=== PATIENT | female | born 1960 | race Caucasian/White ===

== ENCOUNTER 2018-07-18 18:52 | Inpatient (IN) | payer SELFPAY ==
[~2018-07-18] VITALS: Ht 165.1 cm; Wt 162.3 kg
[2018-07-18] MEDS ORDERED: OXYC10TA6 PO (20:41)
[2018-07-18] MEDS ORDERED: ZOLP10TA PO (20:41)
[2018-07-18] MEDS ORDERED: WARF-36 PO (20:41)
[2018-07-18] MEDS ORDERED: LEVO175T5 PO (20:41)
[2018-07-18] MEDS ORDERED: DILT60CA PO (20:41)
[2018-07-18] MEDS ORDERED: DULO60CA7 PO (20:41)
[2018-07-18] MEDS ORDERED: OXYcodone IR 5MG TABLET PO ONE (21:30)
[2018-07-18] MEDS ORDERED: OXYcodone IR 5MG TABLET ONE (21:35)
[2018-07-18 21:43] LABS: BASOPHILS # (AUTO) 0.05 x10^3/uL (0-0.1); BASOPHILS % (AUTO) 1 % (0-1); EOSINOPHILS # (AUTO) 0.05 x10^3/uL (0-0.4); EOSINOPHILS % (AUTO) 1 % (1-7); LYMPHOCYTES # (AUTO) 2.16 x10^3/uL (1-3.4); LYMPHOCYTES % (AUTO) 30 % (22-44); MD NO; MEAN CORPUSCULAR HEMOGLOBIN 30.4 pg (27.0-34.8); MEAN CORPUSCULAR HGB CONC 33.5 g/dL (32.4-35.8); MEAN CORPUSCULAR VOLUME 90.8 fL (80-100); MEAN PLATELET VOLUME 7.5 fL (7.4-10.4); MONOCYTES # (AUTO) 0.66 x10^3/uL (0.2-0.8); MONOCYTES % (AUTO) 9 % (2-9); NEUTROPHILS # (AUTO) 4.36 x10^3/uL (1.8-6.8); NEUTROPHILS % (AUTO) 60 % (42-75); PLATELET COUNT 321 x10^3/uL (130-400); RED BLOOD COUNT 4.25 x10^6/uL (3.82-5.3); RED CELL DISTRIBUTION WIDTH 13.1 % (9.6-15.2)
[2018-07-18] MEDS ORDERED: LORazepam 2 MG/ML, 1ML ONE (21:49)
[2018-07-18 21:53] LABS: ANION GAP 8 mmol/L (5-15); CALCIUM 9.4 mg/dL (8.5-10.1); CHLORIDE 106 mmol/L (98-107); CREATININE 0.77 mg/dL (0.55-1.02)
[2018-07-18] MEDS ORDERED: LORazepam 2 MG/ML, 1ML IVPush ONE (22:00)
[2018-07-18] MEDS ORDERED: GADOBUTROL 10 MMOL/10 ML PFS ONE (23:12)
[2018-07-19] MEDS ORDERED: MORPHINE SULFATE 4 MG/ML, 1ML ONE (00:35)
[2018-07-19] MEDS ORDERED: DEXAMETHASONE 4 MG/ML, 1ML ONE (00:46)
[2018-07-19] MEDS ORDERED: SODIUM CHLORIDE 0.9% 1,000 ML IV SCH (00:49)
[2018-07-19] MEDS ORDERED: PROMETHAZINE 25 MG/ML, 1ML IM PRN (01:00)
[2018-07-19] MEDS ORDERED: POLYETHYLENE GLYCOL 17 GM PACKET PO PRN (01:00)
[2018-07-19] MEDS ORDERED: DEXAMETHASONE 4 MG/ML, 1ML IVPush ONE (01:00)
[2018-07-19] MEDS ORDERED: BISACODYL 10 MG SUPP PR PRN (01:00)
[2018-07-19] MEDS ORDERED: LABETALOL 5MG/ML, 20ML IVPush PRN (01:00)
[2018-07-19] MEDS ORDERED: ONDANSETRON 2MG/ML, 2ML IVPush PRN (01:00)
[2018-07-19] MEDS ORDERED: ACETAMINOPHEN 325 MG TABLET PO PRN (01:00)
[2018-07-19] MEDS ORDERED: hydrALAzine 20 MG/ML, 1ML IVPush PRN (01:00)
[2018-07-19] MEDS ORDERED: MORPHINE SULFATE 4 MG/ML, 1ML IVPush PRN (01:00)
[2018-07-19] MEDS ORDERED: [UNRECOGNIZED DRUG - REMARK] MC SCH (01:30)
[2018-07-19 01:32] LABS: FREE T4 (FREE THYROXINE) 0.82 ng/dL (0.76-1.46); THYROID STIMULATING HORMONE 2.98 mIU/L (0.358-3.740)
[2018-07-19] MEDS ORDERED: HEPARIN 5,000 UNITS/ML, 1ML IV ONE (02:00)
[2018-07-19 02:23] VITALS: BP 120/58
[2018-07-19] MEDS: ZOLPIDEM 10MG TABLET PO PRN ×2 (02:53→21:42)
[2018-07-19 03:08] LABS: HEMOGLOBIN A1C 5.9 % (4.2-6.3)
[2018-07-19] MEDS: DEXAMETHASONE 4 MG/ML, 1ML IVPush SCH ×4 (03:16→21:43)
[2018-07-19] MEDS ORDERED: DIAZEPAM 2 MG TABLET PO ONE (03:30)
[2018-07-19] MEDS: HEPARIN 25,000 UNITS/500ML PMX 500 ML IV PRN (05:03)
[2018-07-19] MEDS: ONDANSETRON ODT 4 MG PO PRN (05:09)
[2018-07-19] MEDS: OXYcodone IR 5MG TABLET PO SCH ×3 (05:10→17:27)
[2018-07-19] MEDS ORDERED: OXYcodone IR 5MG TABLET PO SCH (06:00)
[2018-07-19] MEDS ORDERED: MAGNESIUM SULFATE PMX 2GM/50ML 50 ML IV ONE (07:30)
[2018-07-19 07:57] VITALS: BP 103/64
[2018-07-19] MEDS: morphine SULFATE 10 MG/ML, 1ML IVPush PRN ×3 (08:24→18:27)
[2018-07-19] MEDS ORDERED: LORazepam 2 MG/ML, 1ML IVPush ONE (09:00)
[2018-07-19] MEDS ORDERED: LEVOTHYROXINE 75 MCG TABLET ONE (09:46)
[2018-07-19] MEDS ORDERED: LEVOTHYROXINE 100 MCG TABLET ONE (09:46)
[2018-07-19] MEDS: SENNA/DOCUSATE TABLET PO SCH (09:50)
[2018-07-19] MEDS: DILTIAZEM 60 MG CAP.ER.12H PO SCH ×2 (09:50→21:42)
[2018-07-19] MEDS: DULOXETINE 30 MG CAPSULE.DR PO SCH (09:50)
[2018-07-19] MEDS: LEVOTHYROXINE 175 MCG TABLET PO SCH (09:52)
[2018-07-19] MEDS ORDERED: GADOBUTROL 15 MMOL/15 ML VIAL ONE (11:16)
[2018-07-19 13:24] VITALS: BP 105/71
[2018-07-19 13:38] LABS: CULTURE INDICATED? YES; MICROSCOPIC INDICATED
[2018-07-19] MEDS: HEPARIN 5,000 UNITS/ML, 1ML IV PRN (18:20)
[2018-07-19 20:49] VITALS: BP 135/84
[2018-07-20] MEDS: OXYcodone IR 5MG TABLET PO SCH ×5 (00:20→23:54)
[2018-07-20] MEDS: morphine SULFATE 10 MG/ML, 1ML IVPush PRN ×5 (01:53→20:28)
[2018-07-20] MEDS: HEPARIN 5,000 UNITS/ML, 1ML IV PRN (02:04)
[2018-07-20 02:58] VITALS: BP 120/72
[2018-07-20] MEDS: DEXAMETHASONE 4 MG/ML, 1ML IVPush SCH (04:03)
[2018-07-20] MEDS: HEPARIN 25,000 UNITS/500ML PMX 500 ML IV PRN (05:06)
[2018-07-20 05:58] LABS: BASOPHILS # (AUTO) 0.01 x10^3/uL (0-0.1); BASOPHILS % (AUTO) 0 % (0-1); EOSINOPHILS % (AUTO) 1 % (1-7); LYMPHOCYTES # (AUTO) 1.36 x10^3/uL (1-3.4); LYMPHOCYTES % (AUTO) 11 % (22-44); MD NO; MEAN CORPUSCULAR HEMOGLOBIN 30.1 pg (27.0-34.8); MEAN CORPUSCULAR HGB CONC 32.8 g/dL (32.4-35.8); MEAN CORPUSCULAR VOLUME 91.8 fL (80-100); MEAN PLATELET VOLUME 8.1 fL (7.4-10.4); MONOCYTES # (AUTO) 0.76 x10^3/uL (0.2-0.8); MONOCYTES % (AUTO) 6 % (2-9); NEUTROPHILS # (AUTO) 10.58 x10^3/uL (1.8-6.8); NEUTROPHILS % (AUTO) 83 % (42-75); PLATELET COUNT 325 x10^3/uL (130-400); RED BLOOD COUNT 4.04 x10^6/uL (3.82-5.3); RED CELL DISTRIBUTION WIDTH 13.4 % (9.6-15.2)
[2018-07-20 06:07] LABS: ALANINE AMINOTRANSFERASE 26 U/L (12-78); ALBUMIN 3.4 g/dL (3.4-5.0); ANION GAP 7 mmol/L (5-15); CALCIUM 8.9 mg/dL (8.5-10.1); CHLORIDE 107 mmol/L (98-107)
[2018-07-20 06:09] LABS: ALKALINE PHOSPHATASE 99 U/L (45-117); BILIRUBIN,TOTAL 0.2 mg/dL (0.2-1.0); CHOL/HDL RATIO 2.7; CHOLESTEROL, TOTAL 202 mg/dL (140-239); CREATININE 0.95 mg/dL (0.55-1.02); HDL CHOL % 37 % (28-40); HDL CHOLESTEROL (DIRECT) 74 mg/dL (40-60); LDL CHOLESTEROL,CALCULATED 108 mg/dL (54-169); LDL/HDL RATIO 1.5 (0.5-3.0); TOTAL PROTEIN 7.1 g/dL (6.4-8.2); TRIGLYCERIDES 102 mg/dL (50-200); VLDL CHOLESTEROL 20 mg/dL (0-25)
[2018-07-20 07:20] VITALS: BP 130/75
[2018-07-20] MEDS ORDERED: LEVOTHYROXINE 75 MCG TABLET ONE (09:16)
[2018-07-20] MEDS ORDERED: LEVOTHYROXINE 100 MCG TABLET ONE (09:16)
[2018-07-20] MEDS: SENNA/DOCUSATE TABLET PO SCH (09:20)
[2018-07-20] MEDS: DULOXETINE 30 MG CAPSULE.DR PO SCH (09:20)
[2018-07-20] MEDS: DILTIAZEM 60 MG CAP.ER.12H PO SCH ×2 (09:21→20:28)
[2018-07-20] MEDS: LEVOTHYROXINE 175 MCG TABLET PO SCH (09:21)
[2018-07-20] MEDS ORDERED: LORazepam 2 MG/ML, 1ML IVPush ONE ×2 (10:00→15:00)
[2018-07-20 13:12] VITALS: BP 116/70
[2018-07-20 19:39] VITALS: BP 126/83
[2018-07-20] MEDS: ZOLPIDEM 10MG TABLET PO PRN (22:16)
[2018-07-21] MEDS: HEPARIN 25,000 UNITS/500ML PMX 500 ML IV PRN ×2 (01:49→15:41)
[2018-07-21 02:13] VITALS: BP 125/81
[2018-07-21] MEDS: morphine SULFATE 10 MG/ML, 1ML IVPush PRN ×5 (04:30→20:25)
[2018-07-21] MEDS: HEPARIN 5,000 UNITS/ML, 1ML IV PRN ×2 (05:08→18:30)
[2018-07-21] MEDS: OXYcodone IR 5MG TABLET PO SCH ×4 (05:22→23:31)
[2018-07-21 07:41] VITALS: BP 132/79
[2018-07-21] MEDS ORDERED: LEVOTHYROXINE 100 MCG TABLET ONE (08:58)
[2018-07-21] MEDS ORDERED: LEVOTHYROXINE 75 MCG TABLET ONE (08:58)
[2018-07-21] MEDS: DULOXETINE 30 MG CAPSULE.DR PO SCH (09:01)
[2018-07-21] MEDS: SENNA/DOCUSATE TABLET PO SCH (09:01)
[2018-07-21] MEDS: DILTIAZEM 60 MG CAP.ER.12H PO SCH ×2 (09:01→20:25)
[2018-07-21] MEDS: LEVOTHYROXINE 175 MCG TABLET PO SCH (09:06)
[2018-07-21 13:45] VITALS: BP 133/82
[2018-07-21 20:20] VITALS: BP 121/75
[2018-07-21] MEDS: ZOLPIDEM 10MG TABLET PO PRN (22:18)
[2018-07-22 00:56] VITALS: BP 133/82
[2018-07-22] MEDS: morphine SULFATE 10 MG/ML, 1ML IVPush PRN ×6 (01:47→22:12)
[2018-07-22] MEDS: HEPARIN 25,000 UNITS/500ML PMX 500 ML IV PRN ×2 (03:49→04:04)
[2018-07-22] MEDS: METHOCARBAMOL 500 MG TABLET PO PRN (04:23)
[2018-07-22] MEDS: OXYcodone IR 5MG TABLET PO SCH ×4 (05:42→23:27)
[2018-07-22 07:09] VITALS: BP 112/75
[2018-07-22] MEDS: HEPARIN 5,000 UNITS/ML, 1ML IV PRN (08:12)
[2018-07-22] MEDS: DILTIAZEM 60 MG CAP.ER.12H PO SCH ×2 (09:26→20:41)
[2018-07-22] MEDS: DULOXETINE 30 MG CAPSULE.DR PO SCH (09:27)
[2018-07-22] MEDS: SENNA/DOCUSATE TABLET PO SCH (09:27)
[2018-07-22] MEDS: LEVOTHYROXINE 175 MCG TABLET PO SCH (09:32)
[2018-07-22 11:32] LABS: MICROSCOPIC NOT IND
[2018-07-22 11:46] LABS: CULTURE INDICATED? NO
[2018-07-22 12:26] VITALS: BP 115/72
[2018-07-22 18:36] VITALS: BP 112/77
[2018-07-22] MEDS: ZOLPIDEM 10MG TABLET PO PRN (20:41)
[2018-07-23 00:35] VITALS: BP 116/73
[2018-07-23] MEDS: morphine SULFATE 10 MG/ML, 1ML IVPush PRN ×7 (01:35→22:37)
[2018-07-23] MEDS: HEPARIN 25,000 UNITS/500ML PMX 500 ML IV PRN ×2 (04:11→16:11)
[2018-07-23] MEDS: OXYcodone IR 5MG TABLET PO SCH ×4 (05:31→23:40)
[2018-07-23] MEDS: HEPARIN 5,000 UNITS/ML, 1ML IV PRN (05:32)
[2018-07-23 07:11] VITALS: BP 105/71
[2018-07-23] MEDS: SENNA/DOCUSATE TABLET PO SCH (08:25)
[2018-07-23] MEDS: DULOXETINE 30 MG CAPSULE.DR PO SCH (08:26)
[2018-07-23] MEDS: DILTIAZEM 60 MG CAP.ER.12H PO SCH ×2 (08:26→20:51)
[2018-07-23] MEDS: LEVOTHYROXINE 175 MCG TABLET PO SCH (08:26)
[2018-07-23 12:43] VITALS: BP 110/76
[2018-07-23 14:15] LABS: INTERNATIONAL NORMALIZED RATIO 0.99 (0.93-1.1); PROTHROMBIN TIME 10.3 Seconds (9.6-11.5)
[2018-07-23] MEDS ORDERED: WARFARIN 7.5 MG TABLET PO-COUM ONE (18:00)
[2018-07-23 18:29] VITALS: BP 115/82
[2018-07-23] MEDS: ZOLPIDEM 10MG TABLET PO PRN (20:51)
[2018-07-24 00:43] VITALS: BP 116/66
[2018-07-24] MEDS: morphine SULFATE 10 MG/ML, 1ML IVPush PRN (02:26)
[2018-07-24] MEDS: HEPARIN 25,000 UNITS/500ML PMX 500 ML IV PRN ×2 (02:41→13:39)
[2018-07-24] MEDS: OXYcodone IR 5MG TABLET PO SCH (05:31)
[2018-07-24] MEDS: METHOCARBAMOL 500 MG TABLET PO PRN ×2 (05:32→17:52)
[2018-07-24 05:43] LABS: INTERNATIONAL NORMALIZED RATIO 1.01 (0.93-1.1); PROTHROMBIN TIME 10.5 Seconds (9.6-11.5)
[2018-07-24 05:47] LABS: BASOPHILS # (AUTO) 0.04 x10^3/uL (0-0.1); BASOPHILS % (AUTO) 0 % (0-1); EOSINOPHILS # (AUTO) 0.28 x10^3/uL (0-0.4); EOSINOPHILS % (AUTO) 3 % (1-7); LYMPHOCYTES # (AUTO) 2.83 x10^3/uL (1-3.4); LYMPHOCYTES % (AUTO) 31 % (22-44); MD NO; MEAN CORPUSCULAR HEMOGLOBIN 30.2 pg (27.0-34.8); MEAN CORPUSCULAR HGB CONC 33.1 g/dL (32.4-35.8); MEAN CORPUSCULAR VOLUME 91.1 fL (80-100); MEAN PLATELET VOLUME 7.8 fL (7.4-10.4); MONOCYTES # (AUTO) 0.58 x10^3/uL (0.2-0.8); MONOCYTES % (AUTO) 6 % (2-9); NEUTROPHILS # (AUTO) 5.36 x10^3/uL (1.8-6.8); NEUTROPHILS % (AUTO) 59 % (42-75); PLATELET COUNT 269 x10^3/uL (130-400); RED BLOOD COUNT 4.43 x10^6/uL (3.82-5.3); RED CELL DISTRIBUTION WIDTH 13.7 % (9.6-15.2)
[2018-07-24 05:49] LABS: ALBUMIN 3.2 g/dL (3.4-5.0); ANION GAP 10 mmol/L (5-15); CALCIUM 8.9 mg/dL (8.5-10.1); CHLORIDE 97 mmol/L (98-107)
[2018-07-24 05:53] LABS: ALANINE AMINOTRANSFERASE 25 U/L (12-78); ALKALINE PHOSPHATASE 95 U/L (45-117); BILIRUBIN,TOTAL 0.3 mg/dL (0.2-1.0); CREATININE 0.85 mg/dL (0.55-1.02)
[2018-07-24 07:30] VITALS: BP 103/69
[2018-07-24] MEDS ORDERED: LEVOTHYROXINE 100 MCG TABLET ONE (10:09)
[2018-07-24] MEDS ORDERED: LEVOTHYROXINE 75 MCG TABLET ONE (10:09)
[2018-07-24] MEDS: SENNA/DOCUSATE TABLET PO SCH (10:43)
[2018-07-24] MEDS: LEVOTHYROXINE 175 MCG TABLET PO SCH (10:43)
[2018-07-24] MEDS: DULOXETINE 30 MG CAPSULE.DR PO SCH (10:43)
[2018-07-24] MEDS: DILTIAZEM 60 MG CAP.ER.12H PO SCH (10:44)
[2018-07-24 11:05] VITALS: BP 161/85
[2018-07-24] MEDS: OXYcodone IR 5MG TABLET PO PRN ×3 (11:07→22:30)
[2018-07-24 12:25] VITALS: BP 139/94
[2018-07-24] MEDS ORDERED: MAGNESIUM HYDROXIDE 8%, 30ML UDC ONE (13:44)
[2018-07-24] MEDS: MAGNESIUM HYDROXIDE 8%, 30ML UDC PO PRN (13:46)
[2018-07-24] MEDS ORDERED: WARFARIN 7.5 MG TABLET PO-COUM ONE (18:00)
[2018-07-24] MEDS: ZOLPIDEM 10MG TABLET PO PRN (20:19)
[2018-07-24 20:20] VITALS: BP 117/77
[2018-07-25 01:14] VITALS: BP 129/72
[2018-07-25] MEDS: METHOCARBAMOL 500 MG TABLET PO PRN ×3 (01:46→18:17)
[2018-07-25] MEDS: OXYcodone IR 5MG TABLET PO PRN ×4 (05:06→22:16)
[2018-07-25 05:25] LABS: INTERNATIONAL NORMALIZED RATIO 1.08 (0.93-1.1); PROTHROMBIN TIME 11.1 Seconds (9.6-11.5)
[2018-07-25 08:05] VITALS: BP 113/81
[2018-07-25] MEDS: LEVOTHYROXINE 175 MCG TABLET PO SCH (09:00)
[2018-07-25] MEDS ORDERED: LEVOTHYROXINE 125 MCG TABLET ONE (09:25)
[2018-07-25] MEDS ORDERED: LEVOTHYROXINE 25 MCG TABLET ONE (09:26)
[2018-07-25] MEDS: DULOXETINE 30 MG CAPSULE.DR PO SCH (09:35)
[2018-07-25] MEDS: SENNA/DOCUSATE TABLET PO SCH (09:36)
[2018-07-25] MEDS: DILTIAZEM 120 MG CAP.ER.12H PO SCH (09:36)
[2018-07-25 13:34] VITALS: BP 111/74
[2018-07-25] MEDS: MAGNESIUM HYDROXIDE 8%, 30ML UDC PO PRN (16:09)
[2018-07-25] MEDS ORDERED: WARFARIN 3 MG TABLET PO-COUM SCH (18:00)
[2018-07-25 19:32] VITALS: BP 148/65
[2018-07-25] MEDS: ZOLPIDEM 10MG TABLET PO PRN (20:26)
[2018-07-25] MEDS: ONDANSETRON ODT 4 MG PO PRN (23:19)
[2018-07-26 02:02] VITALS: BP 104/70
[2018-07-26] MEDS: OXYcodone IR 5MG TABLET PO PRN ×4 (04:31→23:26)
[2018-07-26 05:43] LABS: INTERNATIONAL NORMALIZED RATIO 1.3 (0.93-1.1); PROTHROMBIN TIME 13.3 Seconds (9.6-11.5)
[2018-07-26 07:40] VITALS: BP 105/72
[2018-07-26] MEDS ORDERED: LEVOTHYROXINE 75 MCG TABLET ONE (08:14)
[2018-07-26] MEDS ORDERED: LEVOTHYROXINE 100 MCG TABLET ONE (08:14)
[2018-07-26] MEDS: LEVOTHYROXINE 175 MCG TABLET PO SCH (08:33)
[2018-07-26] MEDS: SENNA/DOCUSATE TABLET PO SCH (08:34)
[2018-07-26] MEDS: DULOXETINE 30 MG CAPSULE.DR PO SCH (08:35)
[2018-07-26] MEDS: DILTIAZEM 120 MG CAP.ER.12H PO SCH (08:35)
[2018-07-26] MEDS ORDERED: WARF7.5T PO-COUM (12:19)
[2018-07-26 12:50] VITALS: BP 106/73
[2018-07-26] MEDS ORDERED: WARFARIN 7.5 MG TABLET PO-COUM SCH (18:00)
[2018-07-26 18:58] VITALS: BP 102/69
[2018-07-26] MEDS: ZOLPIDEM 10MG TABLET PO PRN (21:11)
[2018-07-27] MEDS: METHOCARBAMOL 500 MG TABLET PO PRN (01:05)
[2018-07-27 01:59] VITALS: BP 104/67
[2018-07-27 05:32] LABS: INTERNATIONAL NORMALIZED RATIO 1.52 (0.93-1.1); PROTHROMBIN TIME 15.5 Seconds (9.6-11.5)
[2018-07-27] MEDS: OXYcodone IR 5MG TABLET PO PRN ×2 (05:34→11:43)
[2018-07-27 06:45] VITALS: BP 103/69
[2018-07-27] MEDS: SENNA/DOCUSATE TABLET PO SCH (09:00)
[2018-07-27] MEDS: DILTIAZEM 120 MG CAP.ER.12H PO SCH (09:00)
[2018-07-27] MEDS: LEVOTHYROXINE 175 MCG TABLET PO SCH (09:00)
[2018-07-27] MEDS: DULOXETINE 30 MG CAPSULE.DR PO SCH (09:01)
[2018-07-27 12:39] VITALS: BP 114/86
[2018-07-27] MEDS ORDERED: WARFARIN 7.5 MG TABLET PO-COUM ONE (18:00)
== END 2018-07-27 13:30 | disposition home or self-care (01) | DRG 552 ==
LOC: ED 21:31 → 4NOR 07-19 00:49 → DCLOUNGE 07-27 13:15
PROVIDERS: ADMIT Internal Medicine; ATTEND Internal Medicine
DX: M48.061 Spinal stenosis, lumbar region without neurogenic claudication (principal); D68.69 Other thrombophilia; G82.20 Paraplegia, unspecified; L03.90 Cellulitis, unspecified; I69.354 Hemiplegia and hemiparesis following cerebral infarction affecting left non-dominant side; Z68.43 Body mass index [BMI] 50.0-59.9, adult; E66.01 Morbid (severe) obesity due to excess calories; I48.2 Chronic atrial fibrillation; F41.9 Anxiety disorder, unspecified; F32.9 Major depressive disorder, single episode, unspecified; E03.9 Hypothyroidism, unspecified; W01.0XXA Fall on same level from slipping, tripping and stumbling without subsequent striking against object, initial encounter; M43.16 Spondylolisthesis, lumbar region; M51.16 Intervertebral disc disorders with radiculopathy, lumbar region; Z79.01 Long term (current) use of anticoagulants; Z88.6 Allergy status to analgesic agent; Z88.1 Allergy status to other antibiotic agents; Z88.8 Allergy status to other drugs, medicaments and biological substances; Z90.49 Acquired absence of other specified parts of digestive tract; Z98.891 History of uterine scar from previous surgery
CPT/HCPCS: 36415; 70551; 72110; 72131; 72156; 72157; 72158; 80048; 80053; 80061; 81001; 81003; 83036; 83735; 84439; 84443; 85025; 85520; 85610; 87086; 96374; A9585; G0378; J1100; J1644; J2405; Q0162; J2060; J2270; J3475; J7030

== ENCOUNTER 2018-08-10 14:11 | Inpatient (IN) | payer OTHER ==
[~2018-08-10] VITALS: Ht 160 cm; Wt 174.1 kg
[~2018-08-10 14:11] MED LIST: DILT60CA PO; DULO60CA7 PO; LEVO175T5 PO; OXYC10TA6 PO; WARF-36 PO; WARF7.5T PO-COUM; ZOLP10TA PO
[2018-08-10] MEDS ORDERED: MORPHINE SULFATE 4 MG/ML, 1ML IVPush PRN (14:30)
[2018-08-10] MEDS ORDERED: ASPIRIN 81 MG TABLET CHEW PO ONE (14:30)
[2018-08-10] MEDS ORDERED: ASPIRIN 81 MG TABLET CHEW ONE (14:33)
[2018-08-10 14:52] LABS: BASOPHILS # (AUTO) 0.03 x10^3/uL (0-0.1); BASOPHILS % (AUTO) 0 % (0-1); EOSINOPHILS # (AUTO) 0.07 x10^3/uL (0-0.4); EOSINOPHILS % (AUTO) 1 % (1-7); LYMPHOCYTES # (AUTO) 1.35 x10^3/uL (1-3.4); LYMPHOCYTES % (AUTO) 17 % (22-44); MD NO; MEAN CORPUSCULAR HEMOGLOBIN 30.6 pg (27.0-34.8); MEAN CORPUSCULAR HGB CONC 33.6 g/dL (32.4-35.8); MEAN CORPUSCULAR VOLUME 90.9 fL (80-100); MEAN PLATELET VOLUME 7.9 fL (7.4-10.4); MONOCYTES # (AUTO) 0.47 x10^3/uL (0.2-0.8); MONOCYTES % (AUTO) 6 % (2-9); NEUTROPHILS # (AUTO) 5.92 x10^3/uL (1.8-6.8); NEUTROPHILS % (AUTO) 76 % (42-75); PLATELET COUNT 270 x10^3/uL (130-400); RED BLOOD COUNT 4.47 x10^6/uL (3.82-5.3); RED CELL DISTRIBUTION WIDTH 13.4 % (9.6-15.2)
[2018-08-10 15:00] LABS: INTERNATIONAL NORMALIZED RATIO 1.16 (0.93-1.1); PROTHROMBIN TIME 11.9 Seconds (9.6-11.5)
[2018-08-10 15:02] LABS: ALANINE AMINOTRANSFERASE 37 U/L (12-78); ALBUMIN 3.2 g/dL (3.4-5.0); ANION GAP 5 mmol/L (5-15); CALCIUM 8.4 mg/dL (8.5-10.1); CHLORIDE 107 mmol/L (98-107); CREATININE 0.84 mg/dL (0.55-1.02)
[2018-08-10] MEDS ORDERED: MORPHINE SULFATE 4 MG/ML, 1ML ONE (15:02)
[2018-08-10 15:07] LABS: ALKALINE PHOSPHATASE 101 U/L (45-117); BILIRUBIN,TOTAL 0.5 mg/dL (0.2-1.0); TOTAL PROTEIN 6.9 g/dL (6.4-8.2); TROPONIN I 0.056 ng/mL (0.000-0.045)
[2018-08-10] MEDS ORDERED: OMNIPAQUE 350 MG/ML, 100ML BOTTLE ONE (17:11)
[2018-08-10] MEDS ORDERED: HYDR25TA11 PO (17:40)
[2018-08-10] MEDS ORDERED: CLON0.1T PO (17:40)
[2018-08-10 18:21] VITALS: BP 132/88
[2018-08-10] MEDS ORDERED: WARFARIN SODIUM 7.5 MG PO-COUM SCH (18:30)
[2018-08-10] MEDS ORDERED: ENALAPRILAT 1.25 MG/ML, 2ML IV PRN (18:30)
[2018-08-10] MEDS ORDERED: LIDODERM 5% PATCH TD PRN (18:30)
[2018-08-10 19:30] VITALS: BP 131/75
[2018-08-10] MEDS ORDERED: WARFARIN 7.5 MG TABLET PO-COUM ONE (19:30)
[2018-08-10 20:00] VITALS: BP 136/85
[2018-08-10] MEDS: DILTIAZEM 60 MG CAP.ER.12H PO SCH (20:40)
[2018-08-10 21:12] LABS: TROPONIN I 0.051 ng/mL (0.000-0.045)
[2018-08-10 22:00] VITALS: BP 122/76
[2018-08-10] MEDS: ONDANSETRON 4 MG TABLET PO PRN (22:07)
[2018-08-10] MEDS: SODIUM CHLORIDE 0.9% 1,000 ML IV SCH (22:34)
[2018-08-11] VITALS (8 sets, daily range): BP systolic 108–134; BP diastolic 69–76
[2018-08-11] MEDS ORDERED: OXYcodone IR 5MG TABLET PO SCH
[2018-08-11] MEDS: OXYcodone IR 5MG TABLET PO SCH ×5 (00:14→23:19)
[2018-08-11] MEDS: ONDANSETRON 4 MG TABLET PO PRN ×3 (02:50→15:40)
[2018-08-11 03:00] LABS: INTERNATIONAL NORMALIZED RATIO 1.15 (0.93-1.1); PROTHROMBIN TIME 11.8 Seconds (9.6-11.5)
[2018-08-11 03:06] LABS: CHOL/HDL RATIO 3.6; LDL/HDL RATIO 1.6 (0.5-3.0); TROPONIN I 0.048 ng/mL (0.000-0.045)
[2018-08-11] MEDS: DILTIAZEM 60 MG CAP.ER.12H PO SCH ×2 (09:02→21:00)
[2018-08-11] MEDS: DULOXETINE 30 MG CAPSULE.DR PO SCH (09:02)
[2018-08-11] MEDS: ASPIRIN 81 MG TABLET CHEW PO SCH (09:02)
[2018-08-11] MEDS: LEVOTHYROXINE 175 MCG TABLET PO SCH (09:02)
[2018-08-11 16:16] LABS: RAPID INFLUENZA A Negative (Negative); RAPID INFLUENZA B Negative (Negative)
[2018-08-11] MEDS ORDERED: WARFARIN 7.5 MG TABLET PO-COUM SCH (18:00)
[2018-08-11] MEDS: ZOLPIDEM 10MG TABLET PO PRN (20:41)
[2018-08-11] MEDS: SODIUM CHLORIDE 0.9% 1,000 ML IV SCH (23:20)
[2018-08-12 00:55] VITALS: BP 106/67
[2018-08-12 04:52] LABS: INTERNATIONAL NORMALIZED RATIO 1.46 (0.93-1.1); PROTHROMBIN TIME 14.9 Seconds (9.6-11.5)
[2018-08-12] MEDS: OXYcodone IR 5MG TABLET PO SCH ×4 (05:11→22:12)
[2018-08-12 08:30] VITALS: BP 141/65
[2018-08-12] MEDS: LEVOTHYROXINE 175 MCG TABLET PO SCH (08:48)
[2018-08-12] MEDS: DULOXETINE 30 MG CAPSULE.DR PO SCH (08:49)
[2018-08-12] MEDS: ASPIRIN 81 MG TABLET CHEW PO SCH (08:49)
[2018-08-12] MEDS: DILTIAZEM 60 MG CAP.ER.12H PO SCH ×2 (08:49→19:51)
[2018-08-12] MEDS: ONDANSETRON 4 MG TABLET PO PRN ×2 (08:50→17:32)
[2018-08-12] MEDS: SODIUM CHLORIDE 0.9% 1,000 ML IV SCH ×2 (08:58→22:12)
[2018-08-12] MEDS ORDERED: NITROGLYCERIN 0.4 MG BOTTLE (25 TABS) SL PRN (09:00)
[2018-08-12] MEDS ORDERED: NITROGLYCERIN 0.4 MG/SPRAY SL PRN (09:00)
[2018-08-12] MEDS ORDERED: IBUPROFEN 200 MG TABLET PO PRN (10:00)
[2018-08-12 11:07] LABS: CALCIUM 9.1 mg/dL (8.5-10.1); CHLORIDE 106 mmol/L (98-107)
[2018-08-12 11:13] LABS: ALANINE AMINOTRANSFERASE 30 U/L (12-78); ALBUMIN 3.2 g/dL (3.4-5.0); ALKALINE PHOSPHATASE 108 U/L (45-117); ANION GAP 6 mmol/L (5-15); BASOPHILS # (AUTO) 0.03 x10^3/uL (0-0.1); BASOPHILS % (AUTO) 1 % (0-1); BILIRUBIN,TOTAL 0.4 mg/dL (0.2-1.0); CREATININE 0.84 mg/dL (0.55-1.02); EOSINOPHILS # (AUTO) 0.24 x10^3/uL (0-0.4); EOSINOPHILS % (AUTO) 4 % (1-7); LYMPHOCYTES # (AUTO) 1.52 x10^3/uL (1-3.4); LYMPHOCYTES % (AUTO) 25 % (22-44); MD NO; MEAN CORPUSCULAR HEMOGLOBIN 29.9 pg (27.0-34.8); MEAN CORPUSCULAR HGB CONC 32.8 g/dL (32.4-35.8); MEAN CORPUSCULAR VOLUME 91.3 fL (80-100); MEAN PLATELET VOLUME 7.8 fL (7.4-10.4); MONOCYTES # (AUTO) 0.48 x10^3/uL (0.2-0.8); MONOCYTES % (AUTO) 8 % (2-9); NEUTROPHILS # (AUTO) 3.73 x10^3/uL (1.8-6.8); NEUTROPHILS % (AUTO) 62 % (42-75); PLATELET COUNT 270 x10^3/uL (130-400); RED CELL DISTRIBUTION WIDTH 13.9 % (9.6-15.2); TOTAL PROTEIN 6.9 g/dL (6.4-8.2)
[2018-08-12 11:16] LABS: TROPONIN I 0.029 ng/mL (0.000-0.045)
[2018-08-12 14:30] VITALS: BP 135/73
[2018-08-12 17:14] LABS: % IRON SATURATION 12 % (20-55); ANION GAP 7 mmol/L (5-15); CALCIUM 8.7 mg/dL (8.5-10.1); CHLORIDE 107 mmol/L (98-107); CREATININE 0.88 mg/dL (0.55-1.02); IRON LEVEL 42 mcg/dL (50-170); TOTAL IRON BINDING CAPACITY 338 mcg/dL (250-450)
[2018-08-12 17:40] LABS: FOLATE LEVEL 14.5 ng/mL (3.1-17.5)
[2018-08-12] MEDS ORDERED: WARFARIN 7.5 MG TABLET PO-COUM SCH (18:00)
[2018-08-12 18:54] VITALS: BP 107/74
[2018-08-12 19:44] VITALS: BP 116/72
[2018-08-12] MEDS: ZOLPIDEM 10MG TABLET PO PRN (19:55)
[2018-08-13 00:11] VITALS: BP 104/73
[2018-08-13] MEDS: OXYcodone IR 5MG TABLET PO SCH ×4 (03:49→21:32)
[2018-08-13 05:39] LABS: INTERNATIONAL NORMALIZED RATIO 2.04 (0.93-1.1); PROTHROMBIN TIME 20.7 Seconds (9.6-11.5)
[2018-08-13 05:43] LABS: BASOPHILS # (AUTO) 0.03 x10^3/uL (0-0.1); BASOPHILS % (AUTO) 1 % (0-1); EOSINOPHILS % (AUTO) 3 % (1-7); LYMPHOCYTES # (AUTO) 1.73 x10^3/uL (1-3.4); LYMPHOCYTES % (AUTO) 29 % (22-44); MD NO; MEAN CORPUSCULAR HEMOGLOBIN 30.6 pg (27.0-34.8); MEAN CORPUSCULAR HGB CONC 33.2 g/dL (32.4-35.8); MEAN CORPUSCULAR VOLUME 92.2 fL (80-100); MONOCYTES # (AUTO) 0.56 x10^3/uL (0.2-0.8); MONOCYTES % (AUTO) 9 % (2-9); NEUTROPHILS # (AUTO) 3.41 x10^3/uL (1.8-6.8); NEUTROPHILS % (AUTO) 58 % (42-75); PLATELET COUNT 245 x10^3/uL (130-400); RED BLOOD COUNT 4.14 x10^6/uL (3.82-5.3); RED CELL DISTRIBUTION WIDTH 13.9 % (9.6-15.2)
[2018-08-13 07:16] VITALS: BP 113/68
[2018-08-13] MEDS ORDERED: LEVOTHYROXINE 75 MCG TABLET ONE (08:11)
[2018-08-13] MEDS ORDERED: LEVOTHYROXINE 100 MCG TABLET ONE (08:11)
[2018-08-13] MEDS: ASPIRIN 81 MG TABLET CHEW PO SCH (08:15)
[2018-08-13] MEDS: LEVOTHYROXINE 175 MCG TABLET PO SCH (08:16)
[2018-08-13] MEDS: DILTIAZEM 60 MG CAP.ER.12H PO SCH ×2 (08:16→21:33)
[2018-08-13] MEDS: ONDANSETRON 4 MG TABLET PO PRN (08:17)
[2018-08-13] MEDS: DULOXETINE 30 MG CAPSULE.DR PO SCH (08:19)
[2018-08-13] MEDS: SODIUM CHLORIDE 0.9% 1,000 ML IV SCH (10:20)
[2018-08-13] MEDS: LIOTHYRONINE 5 MCG TABLET PO SCH (10:23)
[2018-08-13] MEDS: METHOCARBAMOL 500 MG TABLET PO SCH ×3 (13:17→21:32)
[2018-08-13 14:44] VITALS: BP 103/69
[2018-08-13] MEDS: DOCUSATE 100 MG CAPSULE PO PRN (16:13)
[2018-08-13] MEDS ORDERED: WARFARIN 5 MG TABLET PO-COUM SCH (18:00)
[2018-08-13 18:37] VITALS: BP 127/83
[2018-08-13] MEDS: ZOLPIDEM 10MG TABLET PO PRN (23:30)
[2018-08-14 01:25] VITALS: BP 100/69
[2018-08-14] MEDS: OXYcodone IR 5MG TABLET PO SCH ×4 (03:23→21:54)
[2018-08-14 05:38] LABS: INTERNATIONAL NORMALIZED RATIO 2.1 (0.93-1.1); PROTHROMBIN TIME 21.3 Seconds (9.6-11.5)
[2018-08-14 07:41] VITALS: BP 105/69
[2018-08-14] MEDS: DILTIAZEM 60 MG CAP.ER.12H PO SCH ×2 (08:00→20:46)
[2018-08-14] MEDS: ASPIRIN 81 MG TABLET CHEW PO SCH (08:00)
[2018-08-14] MEDS: METHOCARBAMOL 500 MG TABLET PO SCH ×3 (08:01→20:46)
[2018-08-14] MEDS: LIOTHYRONINE 5 MCG TABLET PO SCH (08:01)
[2018-08-14] MEDS: DULOXETINE 30 MG CAPSULE.DR PO SCH (08:01)
[2018-08-14] MEDS: LEVOTHYROXINE 175 MCG TABLET PO SCH (08:01)
[2018-08-14 12:37] VITALS: BP 104/62
[2018-08-14] MEDS ORDERED: WARFARIN 3 MG TABLET PO-COUM SCH (18:00)
[2018-08-14 19:00] VITALS: BP 95/51
[2018-08-14] MEDS: DOCUSATE 100 MG CAPSULE PO PRN (20:46)
[2018-08-14] MEDS: ZOLPIDEM 10MG TABLET PO PRN (20:46)
[2018-08-15 01:50] VITALS: BP 101/53
[2018-08-15] MEDS: OXYcodone IR 5MG TABLET PO SCH ×3 (05:37→16:06)
[2018-08-15 05:39] LABS: INTERNATIONAL NORMALIZED RATIO 2.15 (0.93-1.1); PROTHROMBIN TIME 21.8 Seconds (9.6-11.5)
[2018-08-15 08:05] VITALS: BP 113/72
[2018-08-15] MEDS: LIOTHYRONINE 5 MCG TABLET PO SCH (08:08)
[2018-08-15] MEDS: METHOCARBAMOL 500 MG TABLET PO SCH ×2 (08:09→16:06)
[2018-08-15] MEDS: DILTIAZEM 60 MG CAP.ER.12H PO SCH (08:09)
[2018-08-15] MEDS: ASPIRIN 81 MG TABLET CHEW PO SCH (08:09)
[2018-08-15] MEDS: DULOXETINE 30 MG CAPSULE.DR PO SCH (08:09)
[2018-08-15] MEDS: LEVOTHYROXINE 175 MCG TABLET PO SCH (08:10)
[2018-08-15] MEDS: DOCUSATE 100 MG CAPSULE PO PRN (08:18)
[2018-08-15] MEDS ORDERED: LIOT5TAB3 PO (12:03)
[2018-08-15] MEDS ORDERED: IBUP-1484 PO (12:03)
[2018-08-15] MEDS ORDERED: METH500T7 PO (12:03)
[2018-08-15 12:54] VITALS: BP 106/70
[2018-08-15] MEDS ORDERED: WARFARIN 3 MG TABLET PO-COUM ONE (18:00)
[2018-08-15] MEDS ORDERED: LEVO175T2 PO (20:07)
[2018-08-15] MEDS ORDERED: DULO30CA2 PO (20:07)
[2018-08-15] MEDS ORDERED: OXYC5TAB3 PO (20:07)
[2018-08-15] MEDS ORDERED: WARF-36 PO (20:07)
[2018-08-15] MEDS ORDERED: HYDR25TA11 PO (20:07)
[2018-08-15] MEDS ORDERED: CLON0.1T12 PO (20:07)
[2018-08-15] MEDS ORDERED: DILT60CA PO (20:07)
== END 2018-08-15 17:40 | disposition home or self-care (01) | DRG 74 ==
LOC: ED 14:53 → EDIP 16:59 → 5SO 18:21 → 3NE 08-13 14:18
PROVIDERS: ADMIT Hospitalist; ATTEND Hospitalist
DX: G90.9 Disorder of the autonomic nervous system, unspecified (principal); F33.0 Major depressive disorder, recurrent, mild; D68.69 Other thrombophilia; E66.01 Morbid (severe) obesity due to excess calories; F41.9 Anxiety disorder, unspecified; E03.9 Hypothyroidism, unspecified; I48.2 Chronic atrial fibrillation; R07.89 Other chest pain; M48.061 Spinal stenosis, lumbar region without neurogenic claudication; Z79.01 Long term (current) use of anticoagulants; Z80.1 Family history of malignant neoplasm of trachea, bronchus and lung; Z86.711 Personal history of pulmonary embolism; Z86.718 Personal history of other venous thrombosis and embolism; Z86.73 Personal history of transient ischemic attack (TIA), and cerebral infarction without residual deficits; Z91.14 Patient's other noncompliance with medication regimen; Z91.19 Patient's noncompliance with other medical treatment and regimen; I25.2 Old myocardial infarction; Z88.6 Allergy status to analgesic agent; Z88.8 Allergy status to other drugs, medicaments and biological substances; Z90.49 Acquired absence of other specified parts of digestive tract
CPT/HCPCS: 0399T; 36415; 70450; 71275; 80048; 80053; 80061; 82607; 82746; 82962; 83540; 83550; 83880; 84145; 84439; 84443; 84484; 85025; 85610; 87400; 93005; 93306; 93880; 96374; 99285; G0378; Q0162; Q9967; 92523-GN; J7030; Q0177

== ENCOUNTER 2018-09-01 10:50 | Inpatient (IN) | payer OTHER ==
[~2018-09-01] VITALS: Ht 165.1 cm; Wt 170.5 kg
[~2018-09-01 10:50] MED LIST changes: +CLON0.1T PO; +CLON0.1T12 PO; +DULO30CA2 PO; +HYDR25TA11 PO; +IBUP-1484 PO; +LEVO175T2 PO; +LIOT5TAB3 PO; +METH500T7 PO; +OXYC5TAB3 PO
[2018-09-01] MEDS ORDERED: ONDANSETRON 2MG/ML, 2ML ONE (11:55)
[2018-09-01] MEDS ORDERED: ASPIRIN 81 MG TABLET CHEW ONE (11:55)
[2018-09-01] MEDS ORDERED: HYDROmorphone 2 MG/ML, 1ML ONE (11:55)
[2018-09-01] MEDS ORDERED: HYDROmorphone 1 MG/ML, 1ML IVPush PRN (12:00)
[2018-09-01] MEDS ORDERED: SODIUM CHLORIDE FLUSH 10ML SYR IVF ONE (12:00)
[2018-09-01] MEDS ORDERED: ONDANSETRON 2MG/ML, 2ML IVPush ONE (12:00)
[2018-09-01] MEDS ORDERED: SODIUM CHLORIDE 0.9% 1,000ML IVBOLUS ONE (12:00)
[2018-09-01] MEDS ORDERED: ASPIRIN 81 MG TABLET CHEW PO ONE (12:00)
[2018-09-01] MEDS: SODIUM CHLORIDE 0.9% 1,000 ML IV ONE ×2 (12:30→14:36)
[2018-09-01 12:35] LABS: BASOPHILS # (AUTO) 0.04 x10^3/uL (0-0.1); BASOPHILS % (AUTO) 1 % (0-1); EOSINOPHILS # (AUTO) 0.05 x10^3/uL (0-0.4); EOSINOPHILS % (AUTO) 1 % (1-7); INTERNATIONAL NORMALIZED RATIO 1.05 (0.93-1.1); LYMPHOCYTES # (AUTO) 1.62 x10^3/uL (1-3.4); LYMPHOCYTES % (AUTO) 27 % (22-44); MD NO; MEAN CORPUSCULAR HEMOGLOBIN 29.7 pg (27.0-34.8); MEAN CORPUSCULAR HGB CONC 33.3 g/dL (32.4-35.8); MEAN CORPUSCULAR VOLUME 89.4 fL (80-100); MEAN PLATELET VOLUME 8.5 fL (7.4-10.4); MONOCYTES # (AUTO) 0.51 x10^3/uL (0.2-0.8); MONOCYTES % (AUTO) 9 % (2-9); NEUTROPHILS # (AUTO) 3.71 x10^3/uL (1.8-6.8); NEUTROPHILS % (AUTO) 63 % (42-75); PLATELET COUNT 296 x10^3/uL (130-400); PROTHROMBIN TIME 10.9 Seconds (9.6-11.5); RED BLOOD COUNT 4.78 x10^6/uL (3.82-5.3); RED CELL DISTRIBUTION WIDTH 13.8 % (9.6-15.2)
[2018-09-01 12:38] LABS: ALANINE AMINOTRANSFERASE 25 U/L (12-78); ALBUMIN 3.4 g/dL (3.4-5.0); ANION GAP 8 mmol/L (5-15); CALCIUM 8.7 mg/dL (8.5-10.1); CHLORIDE 109 mmol/L (98-107); CREATININE 0.88 mg/dL (0.55-1.02)
[2018-09-01 12:42] LABS: ALKALINE PHOSPHATASE 118 U/L (45-117); BILIRUBIN,TOTAL 0.3 mg/dL (0.2-1.0); TOTAL PROTEIN 7.3 g/dL (6.4-8.2); TROPONIN I < 0.015 ng/mL (0.000-0.045)
[2018-09-01 12:57] LABS: CULTURE INDICATED? YES; MICROSCOPIC INDICATED
[2018-09-01] MEDS ORDERED: SODIUM CHLORIDE FLUSH 10ML SYR IVF PRN (14:30)
[2018-09-01] MEDS ORDERED: LABETALOL 5MG/ML, 20ML IVPush PRN (15:00)
[2018-09-01] MEDS ORDERED: ACETAMINOPHEN 325 MG TABLET PO PRN (15:00)
[2018-09-01] MEDS ORDERED: OXYcodone IR 5MG TABLET PO PRN (15:00)
[2018-09-01] MEDS ORDERED: DOCUSATE 100 MG CAPSULE PO PRN (15:00)
[2018-09-01] MEDS ORDERED: BISACODYL 10 MG SUPP PR PRN (15:00)
[2018-09-01] MEDS ORDERED: POLYETHYLENE GLYCOL 17 GM PACKET PO PRN (15:00)
[2018-09-01] MEDS: ENOXAPARIN 40 MG/0.4 ML SQ SCH (16:19)
[2018-09-01] MEDS: IBUPROFEN 200 MG TABLET PO PRN ×2 (16:19→22:53)
[2018-09-01] MEDS: METHOCARBAMOL 500 MG TABLET PO SCH ×2 (16:19→20:56)
[2018-09-01 16:20] VITALS: BP 140/84
[2018-09-01 16:21] VITALS: BP 135/84
[2018-09-01 16:22] VITALS: BP 119/84
[2018-09-01] MEDS ORDERED: WARFARIN 5 MG TABLET PO-COUM ONE (18:00)
[2018-09-01 18:28] LABS: TROPONIN I < 0.015 ng/mL (0.000-0.045)
[2018-09-01 19:05] VITALS: BP 127/77
[2018-09-01] MEDS: DILTIAZEM 60 MG CAP.ER.12H PO SCH (20:56)
[2018-09-01] MEDS: SODIUM CHLORIDE FLUSH 10ML SYR IVF SCH (20:56)
[2018-09-01] MEDS: ONDANSETRON 2MG/ML, 2ML IVPush PRN (20:56)
[2018-09-02] VITALS (7 sets, daily range): BP systolic 107–145; BP diastolic 68–95
[2018-09-02 01:15] LABS: TROPONIN I < 0.015 ng/mL (0.000-0.045)
[2018-09-02 05:47] LABS: BASOPHILS # (AUTO) 0.05 x10^3/uL (0-0.1); BASOPHILS % (AUTO) 1 % (0-1); EOSINOPHILS # (AUTO) 0.13 x10^3/uL (0-0.4); EOSINOPHILS % (AUTO) 2 % (1-7); LYMPHOCYTES # (AUTO) 2.04 x10^3/uL (1-3.4); LYMPHOCYTES % (AUTO) 35 % (22-44); MD NO; MEAN CORPUSCULAR HEMOGLOBIN 30.5 pg (27.0-34.8); MEAN CORPUSCULAR HGB CONC 33.5 g/dL (32.4-35.8); MEAN PLATELET VOLUME 8.5 fL (7.4-10.4); MONOCYTES # (AUTO) 0.62 x10^3/uL (0.2-0.8); MONOCYTES % (AUTO) 11 % (2-9); NEUTROPHILS % (AUTO) 51 % (42-75); PLATELET COUNT 228 x10^3/uL (130-400); RED BLOOD COUNT 4.14 x10^6/uL (3.82-5.3); RED CELL DISTRIBUTION WIDTH 13.9 % (9.6-15.2)
[2018-09-02 05:53] LABS: ANION GAP 9 mmol/L (5-15); CALCIUM 9.1 mg/dL (8.5-10.1); CHLORIDE 110 mmol/L (98-107); CREATININE 0.66 mg/dL (0.55-1.02)
[2018-09-02 06:02] LABS: INTERNATIONAL NORMALIZED RATIO 1.09 (0.93-1.1); PROTHROMBIN TIME 11.3 Seconds (9.6-11.5)
[2018-09-02] MEDS ORDERED: REGADENOSON 0.4 MG/5 ML SYRINGE ONE (08:02)
[2018-09-02] MEDS ORDERED: LEVOTHYROXINE 175 MCG TABLET PO SCH (09:00)
[2018-09-02] MEDS: IBUPROFEN 200 MG TABLET PO PRN ×2 (10:30→17:08)
[2018-09-02] MEDS: DULOXETINE 30 MG CAPSULE.DR PO SCH (10:31)
[2018-09-02] MEDS: LIOTHYRONINE 5 MCG TABLET PO SCH (10:32)
[2018-09-02] MEDS: METHOCARBAMOL 500 MG TABLET PO SCH ×3 (10:33→22:19)
[2018-09-02] MEDS: DILTIAZEM 60 MG CAP.ER.12H PO SCH ×2 (10:34→21:46)
[2018-09-02] MEDS: SODIUM CHLORIDE FLUSH 10ML SYR IVF SCH ×2 (10:34→21:47)
[2018-09-02] MEDS: ONDANSETRON 2MG/ML, 2ML IVPush PRN (14:43)
[2018-09-02] MEDS: ENOXAPARIN 40 MG/0.4 ML SQ SCH (17:15)
[2018-09-02] MEDS ORDERED: WARFARIN 7.5 MG TABLET PO-COUM ONE (18:00)
[2018-09-02] MEDS ORDERED: ZOLPIDEM 5MG TABLET PO ONE ×2 (20:00)
[2018-09-02] MEDS ORDERED: KETOTIFEN OP PRN ×2 (20:00→21:00)
[2018-09-02] MEDS: DICYCLOMINE 20 MG TABLET PO SCH (21:46)
[2018-09-03 02:12] VITALS: BP 134/92
[2018-09-03] MEDS: DICYCLOMINE 20 MG TABLET PO SCH ×4 (05:31→20:53)
[2018-09-03] MEDS: LEVOTHYROXINE 175 MCG TABLET PO SCH (05:31)
[2018-09-03 05:44] LABS: INTERNATIONAL NORMALIZED RATIO 1.17 (0.93-1.1); PROTHROMBIN TIME 12.1 Seconds (9.6-11.5)
[2018-09-03 06:49] VITALS: BP 107/69
[2018-09-03] MEDS: SODIUM CHLORIDE FLUSH 10ML SYR IVF SCH ×2 (08:50→20:54)
[2018-09-03] MEDS: LIOTHYRONINE 5 MCG TABLET PO SCH (08:51)
[2018-09-03] MEDS: DULOXETINE 30 MG CAPSULE.DR PO SCH (08:52)
[2018-09-03] MEDS: DILTIAZEM 60 MG CAP.ER.12H PO SCH ×2 (08:52→20:54)
[2018-09-03] MEDS: METHOCARBAMOL 500 MG TABLET PO SCH ×3 (08:56→20:53)
[2018-09-03] MEDS: OXYcodone IR 5MG TABLET PO PRN ×3 (10:28→23:04)
[2018-09-03 12:31] VITALS: BP 113/75
[2018-09-03] MEDS: ONDANSETRON 2MG/ML, 2ML IVPush PRN ×2 (12:37→21:01)
[2018-09-03] MEDS: ENOXAPARIN 40 MG/0.4 ML SQ SCH (16:57)
[2018-09-03] MEDS ORDERED: WARFARIN 10 MG TABLET PO-COUM ONE (18:00)
[2018-09-03 20:14] VITALS: BP 103/66
[2018-09-03] MEDS ORDERED: ZOLPIDEM 5MG TABLET PO ONE (23:00)
[2018-09-04] VITALS (8 sets, daily range): BP systolic 99–139; BP diastolic 48–92
[2018-09-04] MEDS: DICYCLOMINE 20 MG TABLET PO SCH ×4 (05:17→20:42)
[2018-09-04] MEDS: OXYcodone IR 5MG TABLET PO PRN ×4 (05:17→23:20)
[2018-09-04] MEDS: LEVOTHYROXINE 175 MCG TABLET PO SCH (05:17)
[2018-09-04 05:36] LABS: INTERNATIONAL NORMALIZED RATIO 1.54 (0.93-1.1); PROTHROMBIN TIME 15.9 Seconds (9.6-11.5)
[2018-09-04] MEDS: DULOXETINE 30 MG CAPSULE.DR PO SCH (10:29)
[2018-09-04] MEDS: DILTIAZEM 60 MG CAP.ER.12H PO SCH ×2 (10:29→20:43)
[2018-09-04] MEDS: LIOTHYRONINE 5 MCG TABLET PO SCH (10:29)
[2018-09-04] MEDS: METHOCARBAMOL 500 MG TABLET PO SCH ×3 (10:29→20:42)
[2018-09-04] MEDS: ONDANSETRON 2MG/ML, 2ML IVPush PRN ×2 (10:37→20:48)
[2018-09-04] MEDS: SODIUM CHLORIDE FLUSH 10ML SYR IVF SCH ×2 (10:38→21:00)
[2018-09-04] MEDS: ENOXAPARIN 40 MG/0.4 ML SQ SCH (15:56)
[2018-09-04] MEDS ORDERED: WARFARIN 10 MG TABLET PO-COUM ONE (18:00)
[2018-09-04] MEDS ORDERED: ZOLPIDEM 5MG TABLET PO ONE (21:00)
[2018-09-05 01:09] VITALS: BP 92/58
[2018-09-05 02:09] VITALS: BP 103/66
[2018-09-05 02:38] VITALS: BP 92/58
[2018-09-05] MEDS: OXYcodone IR 5MG TABLET PO PRN ×5 (03:15→22:54)
[2018-09-05 05:22] LABS: INTERNATIONAL NORMALIZED RATIO 2.2 (0.93-1.1); PROTHROMBIN TIME 22.5 Seconds (9.6-11.5)
[2018-09-05] MEDS: DICYCLOMINE 20 MG TABLET PO SCH ×4 (06:27→20:48)
[2018-09-05] MEDS: LEVOTHYROXINE 175 MCG TABLET PO SCH (06:28)
[2018-09-05 07:02] VITALS: BP 116/66
[2018-09-05] MEDS: SODIUM CHLORIDE FLUSH 10ML SYR IVF SCH ×2 (09:41→21:00)
[2018-09-05] MEDS: METHOCARBAMOL 500 MG TABLET PO SCH ×3 (09:42→20:48)
[2018-09-05] MEDS: LIOTHYRONINE 5 MCG TABLET PO SCH (09:42)
[2018-09-05] MEDS: DULOXETINE 30 MG CAPSULE.DR PO SCH (09:42)
[2018-09-05] MEDS: DILTIAZEM 60 MG CAP.ER.12H PO SCH ×2 (09:43→20:48)
[2018-09-05] MEDS: ONDANSETRON 2MG/ML, 2ML IVPush PRN ×2 (10:35→17:29)
[2018-09-05 12:26] VITALS: BP 118/68
[2018-09-05] MEDS: ENOXAPARIN 40 MG/0.4 ML SQ SCH (17:27)
[2018-09-05] MEDS ORDERED: WARFARIN 5 MG TABLET PO-COUM ONE (18:00)
[2018-09-05 20:08] VITALS: BP 118/84
[2018-09-05] MEDS ORDERED: ZOLPIDEM 5MG TABLET PO PRN (21:00)
[2018-09-06 01:33] VITALS: BP_SYST 106; BP_SYST 125; BP_DIAS 64; BP_DIAS 73
[2018-09-06] MEDS: OXYcodone IR 5MG TABLET PO PRN ×4 (03:15→15:30)
[2018-09-06] MEDS: LEVOTHYROXINE 175 MCG TABLET PO SCH (05:33)
[2018-09-06] MEDS: DICYCLOMINE 20 MG TABLET PO SCH ×3 (05:33→15:30)
[2018-09-06 06:02] LABS: INTERNATIONAL NORMALIZED RATIO 2.51 (0.93-1.1); PROTHROMBIN TIME 25.6 Seconds (9.6-11.5)
[2018-09-06 07:08] VITALS: BP 133/84
[2018-09-06] MEDS: DULOXETINE 30 MG CAPSULE.DR PO SCH (08:20)
[2018-09-06] MEDS: LIOTHYRONINE 5 MCG TABLET PO SCH (08:21)
[2018-09-06] MEDS: METHOCARBAMOL 500 MG TABLET PO SCH ×2 (08:21→15:30)
[2018-09-06] MEDS: DILTIAZEM 60 MG CAP.ER.12H PO SCH (08:21)
[2018-09-06] MEDS: SODIUM CHLORIDE FLUSH 10ML SYR IVF SCH (08:21)
[2018-09-06] MEDS: ONDANSETRON 2MG/ML, 2ML IVPush PRN (11:28)
[2018-09-06 12:46] VITALS: BP 94/62
[2018-09-06] MEDS: ENOXAPARIN 40 MG/0.4 ML SQ SCH (15:30)
[2018-09-06] MEDS ORDERED: WARFARIN 5 MG TABLET PO-COUM ONE (18:00)
== END 2018-09-06 17:20 | disposition home or self-care (01) | DRG 74 ==
LOC: ED 13:26 → EDIP 14:46 → 5SO 15:46 → 4EST 09-02 16:05
PROVIDERS: ADMIT Hospitalist; ATTEND Hospitalist
DX: G90.9 Disorder of the autonomic nervous system, unspecified (principal); D68.59 Other primary thrombophilia; Z68.44 Body mass index [BMI] 60.0-69.9, adult; R07.89 Other chest pain; E03.9 Hypothyroidism, unspecified; E66.01 Morbid (severe) obesity due to excess calories; F32.9 Major depressive disorder, single episode, unspecified; I25.10 Atherosclerotic heart disease of native coronary artery without angina pectoris; I25.2 Old myocardial infarction; I48.2 Chronic atrial fibrillation; I50.9 Heart failure, unspecified; Z79.01 Long term (current) use of anticoagulants; Z82.49 Family history of ischemic heart disease and other diseases of the circulatory system; Z88.5 Allergy status to narcotic agent; Z80.9 Family history of malignant neoplasm, unspecified; Z88.0 Allergy status to penicillin; Z88.8 Allergy status to other drugs, medicaments and biological substances; Z86.73 Personal history of transient ischemic attack (TIA), and cerebral infarction without residual deficits; Z86.718 Personal history of other venous thrombosis and embolism; Z86.711 Personal history of pulmonary embolism; Z90.49 Acquired absence of other specified parts of digestive tract
CPT/HCPCS: 36415; 70450; 71045; 72125; 72170; 78452; 80048; 80053; 81001; 83880; 84443; 84484; 85025; 85379; 85610; 85730; 87086; 93005; 93017; 96361; 96374; 96375; G0378; J1170; J1650; J2405; J2785; A9502; C9898; J7030; Q0177